=== PATIENT | female | born 1945 | race Caucasian/White ===

== ENCOUNTER 2016-08-06 20:03 | Emergency (ER) | payer MEDICARE, OTHER ==
[~2016-08-06] VITALS: Ht 162.6 cm; Wt 50.3 kg
[2016-08-06] MEDS ORDERED: HYDROmorphone HCL 2 MG/ML VL IV ONE (23:45)
[2016-08-06] MEDS ORDERED: ONDANSETRON HCL 4 MG/2 ML VIAL IV ONE (23:45)
[2016-08-07] MEDS ORDERED: ETOMIDATE (2MG/ML) 20ML VIAL IV ONE (03:00)
[2016-08-07] MEDS ORDERED: MORPHINE SULFATE 4 MG/ML SYRG IV ONE (04:00)
[2016-08-07] MEDS ORDERED: ONDANSETRON HCL 4 MG/2 ML VIAL IV ONE (04:00)
[2016-08-07 04:30] VITALS: BP 128/94
== END 2016-08-07 05:44 | disposition home or self-care (01) ==
LOC: ER 20:09
DX: S52.501A Unspecified fracture of the lower end of right radius, initial encounter for closed fracture (principal); S52.601A Unspecified fracture of lower end of right ulna, initial encounter for closed fracture; Z88.8 Allergy status to other drugs, medicaments and biological substances; I10 Essential (primary) hypertension; V43.52XA Car driver injured in collision with other type car in traffic accident, initial encounter; Y93.89 Activity, other specified; Y92.89 Other specified places as the place of occurrence of the external cause; Y99.8 Other external cause status
CPT/HCPCS: 25605; 73090; 73110; 96374; 96375; 96376; 99285; J1170; J2270; J2405; J7030

== ENCOUNTER 2016-08-07 07:26 | Emergency (ER) | payer MEDICARE, OTHER ==
[~2016-08-07] VITALS: Ht 160 cm; Wt 49.0 kg
[2016-08-07 07:32] VITALS: BP 115/55
[2016-08-07] MEDS ORDERED: HYDROcodone-ACET 7.5/325MG TAB PO ONE (08:30)
== END 2016-08-07 12:23 | disposition home or self-care (01) ==
LOC: ER 07:26
DX: S52.501D Unspecified fracture of the lower end of right radius, subsequent encounter for closed fracture with routine healing (principal); Z91.018 Allergy to other foods; Z88.8 Allergy status to other drugs, medicaments and biological substances; Z88.6 Allergy status to analgesic agent; I10 Essential (primary) hypertension; X58.XXXD Exposure to other specified factors, subsequent encounter

== ENCOUNTER → 2016-08-12 | Outpatient (CLI) | payer MEDICARE, OTHER | END | disposition home or self-care (01) | LOC: Rad HDHVI 15:55 | PROVIDERS: ATTEND Internal Medicine Cardiovascular Disease | DX: Z01.810 Encounter for preprocedural cardiovascular examination (principal); I10 Essential (primary) hypertension | CPT/HCPCS: 93306 ==

== ENCOUNTER → 2016-08-21 | Outpatient (CLI) | payer MEDICARE, OTHER ==
[~2016-08-21] VITALS: Ht 160 cm; Wt 50.8 kg
[~2016-08-21] MED LIST: ADENOSINE IV ONE; ADENOSINE IV STA; GIVE UN DILUTED IV ONE; GIVE UN DILUTED IV STA
== END | disposition home or self-care (01) ==
LOC: Rad HDHVI 08:11
PROVIDERS: ATTEND Internal Medicine Cardiovascular Disease
DX: I10 Essential (primary) hypertension (principal); I25.2 Old myocardial infarction; Z01.810 Encounter for preprocedural cardiovascular examination
CPT/HCPCS: 78452; 93005; 96374; 96375; A9500; J0153